=== PATIENT | female | born 1960 | race Caucasian/White ===

== ENCOUNTER 2017-09-27 01:19 | Inpatient (IN) | payer OTHER ==
[~2017-09-27] VITALS: Ht 182.9 cm; Wt 92.6 kg
[2017-09-27 01:21] VITALS: Ht 182.9 cm; Wt 92.6 kg
[2017-09-27 03:04] LABS: CALCIUM 8.7 mg/dL (8.5-10.1); CARBON DIOXIDE 28.7 mmol/L (21-32); CHLORIDE SERUM 108 mmol/L (98-107); CREATININE SERUM 0.8 mg/dL (0.6-1.0); GFR1 > 60 mL/min; GLUCOSE SERUM 139 mg/dL (74-106); POTASSIUM SERUM 3.9 mmol/L (3.5-5.1); SODIUM SERUM 143 mmol/L (136-145)
[2017-09-27 03:09] LABS: ALBUMIN 3.5 g/dL (3.4-5.0); ALKALINE PHOSPHATASE 86 U/L (46-116); ALT/SGPT 27 U/L (14-59); AST/SGOT 21 U/L (15-37); BILIRUBIN TOTAL 0.3 mg/dL (0.20-1.00); TOTAL PROTEIN, SERUM 6.7 g/dL (6.4-8.2)
[2017-09-27 03:29] LABS: BASOPHIL % 0.6 % (0-2); PLATELET COUNT 276 x10^3mcL (130-400); RED CELL DISTRIBUTION WIDTH 13.8 % (11.5-14.5)
[2017-09-27 04:08] VITALS: BP 160/98
[2017-09-27] MEDS ORDERED: BACLOFEN10 MG PO (04:13)
[2017-09-27] MEDS ORDERED: PEPCID20 MG PO (04:14)
[2017-09-27] MEDS ORDERED: GABAPENTIN400 M1 PO (04:14)
[2017-09-27] MEDS ORDERED: HYDROXYZINE HYD10 MG PO (04:14)
[2017-09-27] MEDS ORDERED: COZAAR100 MG PO (04:15)
[2017-09-27] MEDS ORDERED: PAXIL10 MG PO (04:15)
[2017-09-27] MEDS ORDERED: HYDROCHLOROTHIA25 MG PO (04:15)
[2017-09-27 04:41] VITALS: BP 160/98
[2017-09-27 09:09] LABS: CHOLESTEROL/HDL RATIO 2.8; MAGNESIUM 2.1 mg/dL (1.8-2.4); PHOSPHOROUS 4.3 mg/dL (2.5-4.9)
[2017-09-27 09:20] LABS: FREE T4 0.98 ng/dL (0.76-1.46); FREE THYROXINE INDEX 2.5 ug/dL (1.4-4.5)
[2017-09-27 09:23] LABS: T3 TOTAL 1.05 ng/mL
[2017-09-27 09:40] VITALS: BP 156/98
[2017-09-27 13:33] VITALS: BP 148/99
[2017-09-27 16:55] VITALS: BP 157/89
[2017-09-27 18:37] LABS: microscopic required? NO
[2017-09-27 18:45] LABS: urine erythrocyte NEGATIVE (NEGATIVE)
[2017-09-27 18:56] LABS: AMPHETAMINE QUAL UR POSITIVE (NEG <=1000)
[2017-09-27 22:15] VITALS: BP 151/97
[2017-09-28 06:12] VITALS: BP 154/87
[2017-09-28 06:19] LABS: PLATELET COUNT 319 x10^3mcL (130-400); RED CELL DISTRIBUTION WIDTH 13.9 % (11.5-14.5)
[2017-09-28 06:27] LABS: CARBON DIOXIDE 27.7 mmol/L (21-32); CHLORIDE SERUM 107 mmol/L (98-107); CREATININE SERUM 0.8 mg/dL (0.6-1.0); GFR1 > 60 mL/min; GLUCOSE SERUM 140 mg/dL (74-106); POTASSIUM SERUM 4.1 mmol/L (3.5-5.1); SODIUM SERUM 144 mmol/L (136-145)
[2017-09-28 07:50] LABS: BASOPHIL % 0 % (0-2)
[2017-09-28 09:20] VITALS: BP 150/87
[2017-09-28 17:18] VITALS: BP 124/75
[2017-09-28 19:20] VITALS: BP 130/79
[2017-09-29 05:29] VITALS: BP 137/84
[2017-09-29 06:08] LABS: PLATELET COUNT 338 x10^3mcL (130-400)
[2017-09-29 06:24] VITALS: BP 137/84
[2017-09-29 06:36] LABS: CALCIUM 8.7 mg/dL (8.5-10.1); CHLORIDE SERUM 101 mmol/L (98-107); CREATININE SERUM 0.8 mg/dL (0.6-1.0); GFR1 > 60 mL/min; GLUCOSE SERUM 144 mg/dL (74-106); POTASSIUM SERUM 3.8 mmol/L (3.5-5.1); SODIUM SERUM 135 mmol/L (136-145)
[2017-09-29 06:47] LABS: BASOPHIL % 0 % (0-2)
[2017-09-29 09:30] VITALS: BP 154/98
[2017-09-29] MEDS ORDERED: MEDDP PO (15:02)
[2017-09-29] MEDS ORDERED: HYD25 PO (15:03)
[2017-09-29 15:04] VITALS: BP 154/98
[2017-09-29] MEDS ORDERED: ADA30 PO (15:04)
[2017-09-29] MEDS ORDERED: NIC21 TD (15:04)
[2017-09-29] MEDS ORDERED: VENTOLIN H0.09 MG/A1 INH (15:16)
== END 2017-09-29 16:40 | disposition home or self-care (01) | DRG 140 ==
LOC: ED 01:19 → DU 02:51 → MU 02:51 → DU 04:02 → MU 09-28 08:52
PROVIDERS: Emergency Medicine; Family Medicine
DX: J44.1 Chronic obstructive pulmonary disease with (acute) exacerbation (principal); N17.0 Acute kidney failure with tubular necrosis; J96.01 Acute respiratory failure with hypoxia; F17.218 Nicotine dependence, cigarettes, with other nicotine-induced disorders; I10 Essential (primary) hypertension; E78.5 Hyperlipidemia, unspecified; F41.9 Anxiety disorder, unspecified; F32.9 Major depressive disorder, single episode, unspecified; K21.9 Gastro-esophageal reflux disease without esophagitis; M19.90 Unspecified osteoarthritis, unspecified site; F12.90 Cannabis use, unspecified, uncomplicated; J20.9 Acute bronchitis, unspecified; E87.8 Other disorders of electrolyte and fluid balance, not elsewhere classified; M62.838 Other muscle spasm; D72.829 Elevated white blood cell count, unspecified; J44.0 Chronic obstructive pulmonary disease with (acute) lower respiratory infection; Z68.27 Body mass index [BMI] 27.0-27.9, adult; Z90.49 Acquired absence of other specified parts of digestive tract; Z71.6 Tobacco abuse counseling; Z79.899 Other long term (current) drug therapy; Z82.49 Family history of ischemic heart disease and other diseases of the circulatory system
CPT/HCPCS: 36600; 83880; 84439; 87804; J1644; J1940; J1956; J2920; J2930; J7030; J7620; J7626; Q0092

== ENCOUNTER 2018-01-16 19:17 | Inpatient (IN) | payer OTHER ==
[~2018-01-16] VITALS: Ht 182.9 cm; Wt 89.4 kg
[~2018-01-16 19:17] MED LIST: ADA30 PO; BACLOFEN10 MG PO; COZAAR100 MG PO; GABAPENTIN400 M1 PO; HYD25 PO; HYDROCHLOROTHIA25 MG PO; HYDROXYZINE HYD10 MG PO; MEDDP PO; NIC21 TD; PAXIL10 MG PO; PEPCID20 MG PO; VENTOLIN H0.09 MG/A1 INH
[2018-01-16 19:21] VITALS: Ht 182.9 cm; Wt 89.4 kg
[2018-01-16 20:09] LABS: BASOPHIL % 0.7 % (0-2); RED CELL DISTRIBUTION WIDTH 14.1 % (11.5-14.5)
[2018-01-16 20:11] LABS: PLATELET COUNT 425 x10^3mcL (130-400)
[2018-01-16 20:17] LABS: CALCIUM 9.2 mg/dL (8.5-10.1); CARBON DIOXIDE 25.9 mmol/L (21-32); CHLORIDE SERUM 104 mmol/L (98-107); CREATININE SERUM 0.9 mg/dL (0.6-1.0); GFR1 > 60 mL/min; GLUCOSE SERUM 94 mg/dL (74-106); POTASSIUM SERUM 4.1 mmol/L (3.5-5.1); SODIUM SERUM 138 mmol/L (136-145)
[2018-01-16 20:21] LABS: ALBUMIN 3.6 g/dL (3.4-5.0); ALKALINE PHOSPHATASE 98 U/L (46-116); ALT/SGPT 23 U/L (14-59); AST/SGOT 18 U/L (15-37); BILIRUBIN TOTAL 0.17 mg/dL (0.20-1.00); TOTAL PROTEIN, SERUM 7.7 g/dL (6.4-8.2)
[2018-01-16 23:43] VITALS: BP 137/93
[2018-01-16 23:45] LABS: CHOLESTEROL/HDL RATIO 4.1
[2018-01-17] VITALS (8 sets, daily range): BP systolic 124–150; BP diastolic 58–93
[2018-01-17 06:06] LABS: BASOPHIL % 0.7 % (0-2); PLATELET COUNT 355 x10^3mcL (130-400)
[2018-01-17 06:16] LABS: CHLORIDE SERUM 105 mmol/L (98-107); CREATININE SERUM 0.9 mg/dL (0.6-1.0); GFR1 > 60 mL/min; GLUCOSE SERUM 105 mg/dL (74-106); POTASSIUM SERUM 4.2 mmol/L (3.5-5.1); SODIUM SERUM 138 mmol/L (136-145)
[2018-01-18 04:31] VITALS: BP 108/62
[2018-01-18 08:01] VITALS: BP 112/70
[2018-01-18 12:00] LABS: microscopic required? NO
[2018-01-18 12:06] VITALS: BP 115/71
[2018-01-18 12:07] LABS: UA SPECIFIC GRAVITY <=1.005 (1.005-1.035); urine erythrocyte NEGATIVE (NEGATIVE)
[2018-01-18 13:31] LABS: AMPHETAMINE QUAL UR NONE DETECTED (See below)
[2018-01-18 16:18] VITALS: BP 121/66
[2018-01-18 19:24] VITALS: BP 121/66
== END 2018-01-18 21:25 | disposition home or self-care (01) | DRG 198 ==
LOC: ED 19:17 → DU 22:13
PROVIDERS: Emergency Medicine; Internal Medicine
DX: R07.89 Other chest pain (principal); I25.10 Atherosclerotic heart disease of native coronary artery without angina pectoris; F17.200 Nicotine dependence, unspecified, uncomplicated; F17.210 Nicotine dependence, cigarettes, uncomplicated; R09.1 Pleurisy; J44.9 Chronic obstructive pulmonary disease, unspecified; F32.9 Major depressive disorder, single episode, unspecified; I10 Essential (primary) hypertension; M19.90 Unspecified osteoarthritis, unspecified site; Z79.82 Long term (current) use of aspirin; Z68.26 Body mass index [BMI] 26.0-26.9, adult; Z91.018 Allergy to other foods; F41.9 Anxiety disorder, unspecified; G89.29 Other chronic pain; M54.9 Dorsalgia, unspecified; Z82.49 Family history of ischemic heart disease and other diseases of the circulatory system
CPT/HCPCS: 83880; 85378; 90732; 99406; A9500; J2270; J2785; J3535; J7620; J7626; Q0092

== ENCOUNTER 2018-02-03 20:08 | Emergency (ER) | payer OTHER ==
[~2018-02-03] VITALS: Ht 182.9 cm; Wt 88.0 kg
[2018-02-03 20:10] VITALS: Ht 182.9 cm; Wt 88.0 kg
[2018-02-03 21:07] LABS: BASOPHIL % 1.3 % (0-2)
[2018-02-03 21:14] LABS: PLATELET COUNT 431 x10^3mcL (130-400)
[2018-02-03 21:16] LABS: CARBON DIOXIDE 26.7 mmol/L (21-32); CHLORIDE SERUM 108 mmol/L (98-107); GFR1 > 60 mL/min; GLUCOSE SERUM 99 mg/dL (74-106); POTASSIUM SERUM 3.7 mmol/L (3.5-5.1); SODIUM SERUM 140 mmol/L (136-145)
[2018-02-03 21:21] LABS: ALKALINE PHOSPHATASE 84 U/L (46-116); ALT/SGPT 18 U/L (14-59); AST/SGOT 15 U/L (15-37); BILIRUBIN TOTAL 0.22 mg/dL (0.20-1.00); LIPASE 158 IU/L (73-393); TOTAL PROTEIN, SERUM 7.2 g/dL (6.4-8.2)
[2018-02-03 21:25] LABS: ALBUMIN 3.2 g/dL (3.4-5.0)
[2018-02-03 22:45] VITALS: BP 133/88
== END 2018-02-03 22:45 | disposition home or self-care (01) ==
LOC: ED 20:08
PROVIDERS: Emergency Medicine
DX: R07.89 Other chest pain (principal); G89.29 Other chronic pain; M54.5 Low back pain; J44.9 Chronic obstructive pulmonary disease, unspecified; Z90.49 Acquired absence of other specified parts of digestive tract; Z91.018 Allergy to other foods
CPT/HCPCS: 36415; 99406; J1885

== ENCOUNTER 2018-02-13 10:31 | Emergency (ER) | payer OTHER ==
[~2018-02-13] VITALS: Ht 182.9 cm; Wt 87.1 kg
[2018-02-13 10:39] VITALS: Ht 182.9 cm; Wt 87.1 kg
[2018-02-13 11:29] LABS: BASOPHIL % 1.1 % (0-2)
[2018-02-13 11:35] LABS: PLATELET COUNT 405 x10^3mcL (130-400); RED CELL DISTRIBUTION WIDTH 15.7 % (11.5-14.5)
[2018-02-13 11:41] LABS: CALCIUM 8.7 mg/dL (8.5-10.1); CARBON DIOXIDE 23.7 mmol/L (21-32); CHLORIDE SERUM 106 mmol/L (98-107); CREATININE SERUM 0.8 mg/dL (0.6-1.0); GFR1 > 60 mL/min; GLUCOSE SERUM 106 mg/dL (74-106); POTASSIUM SERUM 3.8 mmol/L (3.5-5.1); SODIUM SERUM 139 mmol/L (136-145)
[2018-02-13 11:45] LABS: ALBUMIN 3.5 g/dL (3.4-5.0); ALKALINE PHOSPHATASE 75 U/L (46-116); ALT/SGPT 22 U/L (14-59); AST/SGOT 15 U/L (15-37); BILIRUBIN TOTAL 0.29 mg/dL (0.20-1.00); TOTAL PROTEIN, SERUM 7.3 g/dL (6.4-8.2)
[2018-02-13 13:10] VITALS: BP 142/97
== END 2018-02-13 13:10 | disposition home or self-care (01) ==
LOC: ED 10:31
PROVIDERS: Emergency Medicine
DX: J45.901 Unspecified asthma with (acute) exacerbation (principal); Z91.018 Allergy to other foods; Z90.49 Acquired absence of other specified parts of digestive tract
CPT/HCPCS: 36415; 83880; J7620; Q0092